=== PATIENT | female | born 1960 | race American Indian/Alaskan Native ===

== ENCOUNTER 2016-10-22 03:46 | Emergency (ER) | payer OTHER ==
[2016-10-22 04:23] LABS: Bilirubin,Urine NEG (Negative); Blood,Urine NEG (Negative); Ketones,Urine NEG (Negative); Leukocyte Esterase,Urine NEG (Negative); Mucus,Urine FEW /HPF; Nitrite,Urine NEG (Negative); Protein,Urine <15 mg/dL mg/dL (Negative); Urobilinogen,Urine < 2.0 mg/dL (<2.0)
[2016-10-22 05:17] LABS: Basophils % (Auto) 0.6 % (0.0-1.8); Eosinophils % (Auto) 2.6 % (0.0-4.3); Hematocrit 39.8 % (30.3-42.9); Hemoglobin 13.7 gm/dl (10.1-14.3); Mean Corpuscular HGB Conc 34 % (30-34); Mean Corpuscular Hemoglobin 31 pg (28-32); Mean Corpuscular Volume 90 fl (79-97); Platelet Count 238 K/mm3 (140-440); Red Blood Count 4.44 M/mm3 (3.65-5.03); Red Cell Distribution Width 13.4 % (13.2-15.2); White Blood Count 10.3 K/mm3 (4.5-11.0)
[2016-10-22 05:25] LABS: BUN/Creatinine Ratio 21.42; Blood Urea Nitrogen 15 mg/dL (7-17); Calcium 8.8 mg/dL (8.4-10.2); Carbon Dioxide 28 mmol/L (22-30); Glucose 99 mg/dL (65-100)
[2016-10-22 05:26] LABS: Anion Gap 15 mmol/L; Chloride 100.6 mmol/L (98-107); Potassium 4.6 mmol/L (3.6-5.0); Sodium 139 mmol/L (137-145)
--- NOTE | 2016-10-22 06:23 | Emergency Department Report ---
ED Shortness of Breath HPI - General Chief Complaint: Dyspnea/Respdistress Stated Complaint: SOB Time Seen by Provider: 10/22/16 06:18 Source: patient Mode of arrival: Ambulatory Limitations: No Limitations - History of Present Illness Initial Comments: Patient states that she has been having right sided chest pain is the lateral costal area until last night which she became more prominent in the subscapular area. She describes the pain as increasing to a degree on movement and worsening with deep inspiration. She did not describe actual shortness of breath at rest to me. However she did describe difficulty with breathing secondary to pain on a deep inspiration. She has recently traveled from [place]. She denies any leg pain or swelling. She has no prior history of VTE. She denies a family history of the same. She took 4 baby aspirin at about 245 last night. She denies cough and has had no hemoptysis. She is breathing comfortably at rest at this juncture. MD Complaint: shortness of breath (see above history), chest pain -: Gradual, days(s) Severity: moderate Quality: dull Consistency: intermittent, now resolved Improves With: nothing Worsens With: inspiration, other (movement) Context: recent travel Associated Symptoms: denies other symptoms Treatments Prior to Arrival: asprin - Related Data Home Oxygen Therapy: No Previous Rx's Medication Instructions Recorded Last Taken Type traMADol [Ultram] 50 mg PO Q6HR PRN #14 tablet 10/22/16 Unknown Rx Allergies Allergy/AdvReac Type Severity Reaction Status Date / Time Penicillins Allergy Unknown Verified 10/22/16 04:54 ED Review of Systems ROS: Stated complaint: SOB Other details as noted in HPI Constitutional: denies: chills, fever Eyes: denies: eye pain, eye discharge, vision change ENT: denies: ear pain, throat pain Respiratory: shortness of breath (as above described). denies: cough, wheezing Cardiovascular: chest pain. denies: palpitations Endocrine: no symptoms reported Gastrointestinal: denies: abdominal pain, nausea, diarrhea Genitourinary: denies: urgency, dysuria, discharge Musculoskeletal: denies: back pain, joint swelling, arthralgia Skin: denies: rash, lesions Neurological: denies: headache, weakness, paresthesias Psychiatric: denies: anxiety, depression Hematological/Lymphatic: denies: easy bleeding, easy bruising ED Past Medical Hx - Past Medical History Previous Medical History?: No - Surgical History Past Surgical History?: No - Social History Smoking Status: Never Smoker - Medications Home Medications: Home Medications Medication Instructions Recorded Confirmed Last Taken Type traMADol [Ultram] 50 mg PO Q6HR PRN #14 tablet 10/22/16 Unknown Rx ED Physical Exam - General Limitations: No Limitations General appearance: alert, in no apparent distress - Head Head exam: Present: atraumatic, normocephalic - Eye Eye exam: Present: normal appearance. Absent: scleral icterus - ENT ENT exam: Present: normal exam, mucous membranes moist - Neck Neck exam: Present: normal inspection. Absent: tenderness, meningismus - Respiratory Respiratory exam: Present: normal lung sounds bilaterally. Absent: respiratory distress - Cardiovascular Cardiovascular Exam: Present: regular rate, normal rhythm. Absent: systolic murmur, diastolic murmur, rubs, gallop - GI/Abdominal GI/Abdominal exam: Present: soft, normal bowel sounds. Absent: distended, tenderness, guarding, rebound, rigid - Extremities Exam Extremities exam: Present: normal inspection - Back Exam Back exam: Present: normal inspection - Neurological Exam Neurological exam: Present: alert, oriented X3, CN II-XII intact. Absent: motor sensory deficit - Psychiatric Psychiatric exam: Present: normal affect, normal mood - Skin Skin exam: Present: warm, dry, intact, normal color. Absent: rash ED Course Vital Signs 10/22/16 10/22/16 10/22/16 03:53 04:42 06:56 Temperature 98.1 F Pulse Rate 68 66 68 Respiratory 26 H 20 16 Rate Blood Pressure 163/86 Blood Pressure 158/77 131/72 [Left] O2 Sat by Pulse 100 98 99 Oximetry 10/22/16 08:24 Temperature 98.3 F Pulse Rate 69 Respiratory 16 Rate Blood Pressure Blood Pressure 155/77 [Left] O2 Sat by Pulse 99 Oximetry - Reevaluation(s) Reevaluation #1: Assessment comfortable without complaint. She has no chest pain. She has no shortness of breath. CTA result was reviewed and the need for follow-up. 10/22/16 09:02 ED Medical Decision Making - Lab Data Result diagrams: 10/22/16 04:01 10/22/16 04:01 Laboratory Results - last 24 hr 10/22/16 10/22/16 10/22/16 04:01 04:01 04:01 WBC 10.3 RBC 4.44 Hgb 13.7 Hct 39.8 MCV 90 MCH 31 MCHC 34 RDW 13.4 Plt Count 238 Lymph % (Auto) 25.0 Emanuel % (Auto) 7.7 H Eos % (Auto) 2.6 Baso % (Auto) 0.6 Lymph # 2.6 Emanuel # 0.8 Eos # 0.3 Baso # 0.1 Seg Neutrophils % 64.1 Seg Neutrophils # 6.6 Sodium 139 Potassium 4.6 Chloride 100.6 Carbon Dioxide 28 Anion Gap 15 BUN 15 Creatinine 0.7 Estimated GFR > 60 BUN/Creatinine Ratio 21.42 Glucose 99 Calcium 8.8 Troponin T < 0.010 Urine Color Straw Urine Turbidity Clear Urine pH 8.0 H Ur Specific [place] 1.012 Urine Protein <15 mg/dl Urine Glucose (UA) Neg Urine Ketones Neg Urine Blood Neg Urine Nitrite Neg Urine Bilirubin Neg Urine Urobilinogen < 2.0 Ur Leukocyte Esterase Neg Urine WBC (Auto) 1.0 Urine RBC (Auto) 1.0 U Epithel Cells (Auto) < 1.0 Urine Mucus Few Urine HCG, Qual Negative - EKG Data -: EKG Interpreted by Me EKG shows normal: sinus rhythm, axis, intervals, QRS complexes, ST-T waves Rate: bradycardia - EKG Data Interpretation: no acute changes - Radiology Data Radiology results: report reviewed (CTA is negative) interpreted by me: Chronic changes L base Critical care attestation.: If time is entered above; I have spent that time in minutes in the direct care of this critically ill patient, excluding procedure time. ED Disposition Clinical Impression: Right-sided chest pain Disposition: TO HOME OR SELFCARE Is pt being admited?: No Does the pt Need Aspirin: No Condition: Stable Instructions: Chest Pain (ED) Additional Instructions: Return any acute change or problem. Follow-up with a primary care physician. Rx as needed for pain. Return any acute change. Prescriptions: traMADol [Ultram] 50 mg PO Q6HR PRN #14 tablet PRN Reason: Pain Referrals: PRIMARY CARE [Primary Care Provider] - 3-5 Days [facility] [Provider Group] - 3-5 Days Time of Disposition: 09:03
[2016-10-22] MEDS ORDERED: NACL ONE (07:17)
--- NOTE | 2016-10-22 07:20 | XRay Report ---
Chest 2 views: History: Shortness of breath. Findings: Normal cardiomediastinal silhouette. Trachea is midline. No consolidation, pneumothorax or pleural effusion. Impression: No acute cardiopulmonary findings.
[2016-10-22 08:25] VITALS: BP 155/77
--- NOTE | 2016-10-22 08:44 | Cat Scan Report ---
CTA chest: PE protocol. History: Pleuritic chest pain. Findings: No evidence of aortic aneurysm or pulmonary embolism. No mediastinal mass or adenopathy. No pleural or pericardial effusion minimal pleural thickening right lower chest. No consolidation or mass in the lung parenchyma. Circumscribed hypodensity liver probably a cyst. Impression: No evidence of pulmonary embolism. No acute changes.
== END 2016-10-22 09:37 | disposition home or self-care (01) ==
LOC: ED 03:46
DX: R07.89 Other chest pain (principal); R06.02 Shortness of breath; Z88.0 Allergy status to penicillin
CPT/HCPCS: 36415; 71020; 71275; 80048; 81001; 81025; 84484; 85025; 93005; 93010; 99285; Q9967